=== PATIENT | female | born 1970 | race American Indian/Alaskan Native ===

== ENCOUNTER 2016-07-12 00:46 | Emergency (ER) | payer SELFPAY ==
[2016-07-12] MEDS ORDERED: BOOSTRIX IM ONE (02:36)
[2016-07-12] MEDS ORDERED: NACL 0.9% 1000 ML 1,000 ML IV ONE (02:36)
[2016-07-12] MEDS ORDERED: KETALAR IV ONE (02:36)
[2016-07-12] MEDS ORDERED: XYLOCAINE 2% INFILTRATI ONE (02:38)
[2016-07-12] MEDS ORDERED: XYLOCAINE TOPICAL 4% TP ONE (02:38)
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
[2016-07-12 03:06] LABS: Hematocrit 36.2 % (30.3-42.9); Hemoglobin 11.4 gm/dl (10.1-14.3); Mean Corpuscular HGB Conc 32 % (30-34); Mean Corpuscular Volume 82 fl (79-97); Platelet Count 305 K/mm3 (140-440); Red Cell Distribution Width 16.4 % (13.2-15.2)
[2016-07-12 03:22] LABS: Mean Corpuscular Hemoglobin 26 pg (28-32); White Blood Count 20.3 K/mm3 (4.5-11.0)
[2016-07-12] MEDS ORDERED: NACL ONE (04:12)
[2016-07-12 04:14] LABS: Anion Gap 22 mmol/L; BUN/Creatinine Ratio 4.28; Blood Urea Nitrogen 3 mg/dL (7-17); Calcium 9.1 mg/dL (8.4-10.2); Carbon Dioxide 21 mmol/L (22-30); Chloride 101.5 mmol/L (98-107); Creatine Kinase 284 units/L (30-135); Glucose 84 mg/dL (65-100); Potassium 4.3 mmol/L (3.6-5.0); Sodium 140 mmol/L (137-145)
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
[2016-07-12] MEDS ORDERED: NACL 0.9% 500 ML IR ONE (05:50)
[2016-07-12] MEDS ORDERED: CLEOCIN PO ONE (06:28)
[2016-07-12 06:35] VITALS: BP 146/80
[2016-07-12] MEDS ORDERED: BETADINE TP SCH (08:00)
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
--- NOTE | 2016-07-12 09:10 | XRay Report ---
AP CHEST: HISTORY: chest pain AP view of the chest demonstrates a normal mediastinal and cardiac contour with clear lungs and normal bony and soft tissue structures. IMPRESSION: No acute process noted.
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
== END 2016-07-12 07:27 | disposition home or self-care (01) ==
LOC: ED 00:46
DX: S82.831A Other fracture of upper and lower end of right fibula, initial encounter for closed fracture (principal); S01.81XA Laceration without foreign body of other part of head, initial encounter; F10.129 Alcohol abuse with intoxication, unspecified; F17.200 Nicotine dependence, unspecified, uncomplicated; V49.9XXA Car occupant (driver) (passenger) injured in unspecified traffic accident, initial encounter; Y93.89 Activity, other specified; Y99.9 Unspecified external cause status; Y92.410 Unspecified street and highway as the place of occurrence of the external cause
CPT/HCPCS: 12051; 29505; 36415; 70450; 71010; 72125; 72170; 73120; 73560; 73590; 73600; 74177; 80048; 82550; 84484; 84702; 85027; 90471; 90715; 93005; 93010; 96361; 96374; 99285; G0480; J7030; Q9967; 80320

== ENCOUNTER 2016-07-17 13:53 | Emergency (ER) | payer SELFPAY ==
[2016-07-17 14:04] VITALS: BP 158/98
== END 2016-07-17 16:11 | disposition home or self-care (01) ==
LOC: ED 13:53
DX: S01.81XD Laceration without foreign body of other part of head, subsequent encounter (principal); F17.200 Nicotine dependence, unspecified, uncomplicated; Z98.51 Tubal ligation status; Z88.8 Allergy status to other drugs, medicaments and biological substances